=== PATIENT | male | born 2000 | race Hispanic/Latino ===

== ENCOUNTER 2024-06-06 07:45 | Emergency (ER) | payer OTHER ==
[2024-06-06] VITALS (9 sets, daily range): BP systolic 118–138; BP diastolic 79–92
[~2024-06-06] VITALS: Ht 175.3 cm; Wt 106.0 kg
== END 2024-06-06 09:53 | disposition home or self-care (01) | DRG 563 ==
LOC: ED 07:45
DX: S63.502A Unspecified sprain of left wrist, initial encounter (principal); V59.40XA Driver of pick-up truck or van injured in collision with unspecified motor vehicles in traffic accident, initial encounter